=== PATIENT | female | born 1945 | race Caucasian/White ===

== ENCOUNTER 2016-11-27 06:18 | Inpatient (IN) | payer MEDICARE ==
[~2016-11-27] VITALS: Ht 170.2 cm; Wt 67.3 kg
[~2016-11-27 06:18] MED LIST: LEVO75TA5 PO
[2016-11-27] MEDS ORDERED: LACTATED RINGERS 1,000 ML IV SCH (07:33)
[2016-11-27 07:35] VITALS: BP 115/70
[2016-11-27] MEDS ORDERED: LIDOCAINE 1%, 2ML ONE (07:40)
[2016-11-27] MEDS ORDERED: LIDOCAINE 1%, 2ML SQ PRN (08:00)
[2016-11-27] MEDS ORDERED: SODIUM BICARBONATE 4.2%, 5ML ONE (08:08)
[2016-11-27] MEDS ORDERED: LIDOCAINE 1%, 20ML ONE (08:08)
[2016-11-27] MEDS ORDERED: REGADENOSON 0.4 MG/5 ML SYRINGE ONE (08:08)
[2016-11-27] MEDS ORDERED: LIDOCAINE/PF 1%, 30ML ONE (09:39)
[2016-11-27] MEDS ORDERED: BUPIVACAINE/PF-EPI 0.5% 1:200K ONE (09:39)
[2016-11-27] MEDS ORDERED: ISOSULFAN BLUE 10 MG/ML, 5ML IV ONE (09:39)
[2016-11-27] MEDS ORDERED: ONDANSETRON 2MG/ML, 2ML IVPush PRN (10:00)
[2016-11-27] MEDS ORDERED: ACETAMINOPHEN 325 MG TABLET PO PRN ×2 (10:00→14:00)
[2016-11-27] MEDS ORDERED: hydrALAzine 20 MG/ML, 1ML IV PRN ×2 (10:00→14:00)
[2016-11-27] MEDS ORDERED: OXYcodone 5 MG/5 ML ORAL.SOL UDC PO PRN (10:00)
[2016-11-27] MEDS ORDERED: MEPERIDINE/PF 25MG/0.5ML IVPush PRN (10:00)
[2016-11-27] MEDS ORDERED: PROMETHAZINE 25 MG/ML, 1ML IV PRN (10:00)
[2016-11-27] MEDS ORDERED: LABETALOL 5MG/ML, 20ML IV PRN (10:00)
[2016-11-27] MEDS ORDERED: METOCLOPRAMIDE 5 MG/ML, 2ML IV PRN (10:00)
[2016-11-27] MEDS ORDERED: HYDROmorphone 1 MG/ML, 1ML IV PRN (10:00)
[2016-11-27] MEDS ORDERED: OXYcodone 5 MG/5 ML ORAL.SOL UDC ONE (12:11)
[2016-11-27] MEDS ORDERED: HYDROmorphone 2 MG/ML, 1ML ONE (12:11)
[2016-11-27] MEDS ORDERED: FENTANYL PF 100 MCG/2ML ONE (12:11)
[2016-11-27] MEDS: FENTANYL PF 100 MCG/2ML IV PRN ×2 (12:15→12:34)
[2016-11-27] MEDS ORDERED: PROMETHAZINE 25 MG/ML, 1ML ONE (12:50)
[2016-11-27 13:50] VITALS: BP 107/70
[2016-11-27] MEDS ORDERED: DIPHENHYDRAMINE 25 MG CAPSULE PO PRN (14:00)
[2016-11-27] MEDS ORDERED: LORazepam 1MG TABLET PO PRN (14:00)
[2016-11-27] MEDS ORDERED: ONDANSETRON 2MG/ML, 2ML IV PRN (14:00)
[2016-11-27] MEDS ORDERED: ACETAMINOPHEN 650 MG SUPP PR PRN (14:00)
[2016-11-27] MEDS ORDERED: LORazepam 2 MG/ML, 1ML IV PRN (14:00)
[2016-11-27] MEDS ORDERED: morphine SULFATE 10 MG/ML, 1ML IV PRN (14:00)
[2016-11-27] MEDS ORDERED: DIPHENHYDRAMINE 50 MG/ML, 1ML IV PRN (14:00)
[2016-11-27] MEDS ORDERED: ENALAPRILAT 1.25 MG/ML, 2ML IV PRN (14:00)
[2016-11-27] MEDS ORDERED: NEOSTIGMINE 1 MG/ML, 10ML ONE (15:21)
[2016-11-27] MEDS ORDERED: ONDANSETRON 2MG/ML, 2ML ONE (15:21)
[2016-11-27] MEDS ORDERED: DEXAMETHASONE 4 MG/ML, 1ML ONE (15:21)
[2016-11-27] MEDS ORDERED: GLYCOPYRROLATE 0.2MG/1ML ONE (15:21)
[2016-11-27] MEDS ORDERED: ROCURONIUM 10 MG/ML ONE (15:21)
[2016-11-27] MEDS ORDERED: PROPOFOL 10 MG/ML, 20ML ONE (15:21)
[2016-11-27] MEDS: SODIUM CHLORIDE 0.9% 1,000 ML IV SCH (16:33)
[2016-11-27 19:32] VITALS: BP 106/62
[2016-11-27] MEDS: HYDROcodone/APAP 5/325 TABLET PO PRN (20:57)
[2016-11-27 23:35] VITALS: BP_SYST 92; BP_SYST 93; BP_DIAS 48; BP_DIAS 51
[2016-11-28 01:12] VITALS: BP 98/56
[2016-11-28] MEDS: HYDROcodone/APAP 5/325 TABLET PO PRN (01:35)
[2016-11-28 03:44] VITALS: BP 92/52
[2016-11-28] MEDS: SODIUM CHLORIDE 0.9% 1,000 ML IV SCH (05:15)
[2016-11-28] MEDS ORDERED: LEVOTHYROXINE 75 MCG TABLET PO SCH (06:00)
[2016-11-28 08:40] VITALS: BP 103/65
[2016-11-28 09:44] VITALS: BP 120/73
[2016-11-28] MEDS ORDERED: HYDR-3240 PO (10:15)
== END 2016-11-28 11:02 | disposition home or self-care (01) | DRG 581 ==
LOC: ORIP 06:18 → 4NOR 13:23 → DCLOUNGE 11-28 10:43
PROVIDERS: ADMIT Surgery; ATTEND Surgery
PROC: 0HTV0ZZ Resection of Bilateral Breast, Open Approach (ICD-10-PCS; 2016-11-27)
PROC: 07B50ZX Excision of Right Axillary Lymphatic, Open Approach, Diagnostic (ICD-10-PCS; principal; 2016-11-27 10:30)
DX: C50.912 Malignant neoplasm of unspecified site of left female breast (principal); C50.911 Malignant neoplasm of unspecified site of right female breast; Z17.0 Estrogen receptor positive status [ER+]; Z92.3 Personal history of irradiation
CPT/HCPCS: 38792; 88305; 88307; 88309; 88331; 93005; J1100; J1170; J2250; J2405; J2704; J2710; J2785; J3010; J3490; A9541; C9898; J7030; J7120